=== PATIENT | male | born 1980 | race Caucasian/White ===

== ENCOUNTER 2017-08-29 15:51 | Emergency (ER) | payer MEDICARE ==
--- NOTE | 2017-08-29 16:29 | Emergency Department Record ---
History of Present Illness - General Chief complaint: Facial Swelling Stated complaint: FACE SWELLING SINCE SEIZURE 08/28/17 Time Seen by Provider: 08/29/17 16:20 Source: Patient Mode of Arrival: Ambulatory Limitations: No limitations - History of Present Illness Initial Comments: The patient states he has been having an increase in his chronic seizure pattern and now for the last few days he has had increased pain and very mild swelling to the R facial area. The patient is not sure if he has had any significant trauma or injury from the seizures due to loosing his memory for a time after which is normal for him. There has been no reported fever, chills, neck pain, vomiting, cough or visual changes. MD Complaint: Facial swelling Onset/Timin -: Days(s) Exposure: Unknown Symptoms: Facial swelling Severity: Mild Treatment Prior to Arrival: None Previous Allergy History: None - Related Data Home Medications Medication Instructions Recorded Confirmed Last Taken Zonisamide [Zonegran] 200 mg PO QHS 08/29/17 08/29/17 08/28/17 Previous Rx's Medication Instructions Recorded Clindamycin HCl [Cleocin HCl] 300 mg PO QID #28 capsule 08/29/17 Naproxen [Naprosyn] 500 mg PO BID #14 tablet. 08/29/17 Allergies Allergy/AdvReac Type Severity Reaction Status Date / Time Penicillins Allergy PT UNSURE Verified 08/29/17 16:08 OF REACTION Travel Screening - Travel/Exposure Within Last 30 Days Have you traveled within the last 30 days?: No Review of Systems Constitutional: Denies: Chills, Fever Eyes: Denies: Eye discharge ENT: Denies: Congestion Respiratory: Denies: Cough, Dyspnea Past Medical History - SOCIAL HISTORY Smoking Status: Former smoker Alcohol Use: Occasional Drug Use: None - RESPIRATORY Hx Respiratory Disorders: No - CARDIOVASCULAR Hx Cardio Disorders: Yes Hx Irregular Heartbeat: Yes (A-fib with seizure) - NEURO Hx Neuro Disorders: Yes Hx Seizures: Yes - GI Hx GI Disorders: No - Hx Genitourinary Disorders: No - ENDOCRINE Hx Endocrine Disorders: No - MUSCULOSKELETAL Hx Musculoskeletal Disorders: No - PSYCH Hx Psych Problems: Yes Hx Anxiety: Yes Hx Depression: Yes (PTSD) Family Medical History Any Significant Family History?: No Physical Exam - General General Appearance: Alert, Oriented x3, Cooperative, No acute distress - Head Head exam: Atraumatic, Normocephalic, Normal inspection - Eye Eye exam: Normal appearance, PERRL - ENT ENT exam: negative: Normal exam (There is very mild swelling and some tenderness to the R maxillary area above the teeth.) Teeth exam: Dental caries Throat exam: Normal inspection. negative: Tonsillar erythema - Neck Neck exam: Normal inspection, Full ROM. negative: Lymphadenopathy, Tenderness - Respiratory Respiratory exam: Normal lung sounds bilaterally. negative: Respiratory distress - Cardiovascular Cardiovascular Exam: Regular rate, Normal rhythm, Normal heart sounds - GI/Abdominal GI/Abdominal exam: Soft, Normal bowel sounds. negative: Tenderness - Extremities Extremities exam: Normal inspection, Full ROM, Normal capillary refill. negative: Tenderness - Neurological Neurological exam: Alert, Normal gait, Oriented X3. negative: Abnormal gait, Altered, Motor sensory deficit Course Vital Signs 08/29/17 16:10 Pulse Rate 112 H Respiratory 18 Rate Blood Pressure 140/97 Pulse Ox 98 - Reevaluation(s) Reevaluation #1: I did discuss the issues with the patient and the need for F/U with his Dentist and his Neurologist. We will discharge him on Clindamycin and Naprosyn. 08/29/17 17:41 Medical Decision Making - Data Complexity MDM Data: Labs Ordered and/or Reviewed, X-Ray Ordered and/or Reviewed - Lab Data Result diagrams: 08/29/17 16:15 08/29/17 16:15 - Radiology Data Radiology results: Report reviewed (Head CT: Neg for any acute changes. Facial bone CT: No obvious abscess but multiple dental caries.) Disposition Disposition: Discharge Clinical Impression: Pain, dental Disposition: Home, Self-Care Condition: (2) Stable Instructions: Toothache (ED) Additional Instructions: Please take the Naprosyn for pain and also the Clindamycin as directed. Please see your Neurologist for your seizures NAHUN and also see your Dentist NAHUN. Please return to an ER for any worsening symptoms. Prescriptions: Clindamycin HCl [Cleocin HCl] 300 mg PO QID #28 capsule Naproxen [Naprosyn] 500 mg PO BID #14 tablet.dr Forms: Patient Portal Access Time of Disposition: 17:43 Quality - Quality Measures Quality Measures: N/A - Blood Pressure Screening View Details: Yes Does Patient Have Any of the Following: No Blood Pressure Classification: Hypertensive Reading Systolic Measurement: 140 Diastolic Measurement: 97 Screening for High Blood Pressure: < First Hypertensive BP, F/U Documented > [ G8950] First Hypertensive Follow-up Interventions: Referral to alternative/primary care provider.
[2017-08-29 16:36] LABS: BASO % 0.4 % (0-6); EOS % 1.3 % (0-6); GRAN % 73.3 % (47-80); HEMATOCRIT 44.9 % (42.0-52.0); HEMOGLOBIN 15.6 gm/dl (14.0-18.0); LYMPH % 15.5 % (16-45); MEAN CELL VOLUME 88.2 fl (81-97); MEAN CORPUSCULAR HEMOGLOBIN 30.6 pg (27-33); MEAN CORPUSCULAR HGB CONC 34.7 g/dl (32-36); MEAN PLATELET VOLUME 9.5 fl (7.4-10.4); MONO % 9.5 % (0-9); PLATELET COUNT 270 K/uL (130-400); RED BLOOD COUNT 5.09 M/uL (4.40-5.70); RED CELL DISTRIBUTION WIDTH 13.1 % (11.5-14.5); WHITE BLOOD COUNT W/O DIFF 13.6 K/uL (4.2-12.2)
[2017-08-29 16:47] LABS: BLOOD UREA NITROGEN 14 mg/dL (6-20); CREATININE 1.1 mg/dL (0.7-1.2); EST GLOMERULAR FILTRATION RATE > 60 mL/min
[2017-08-29 16:48] LABS: TOTAL PROTEIN 8.2 g/dL (6.6-8.7)
[2017-08-29 16:50] LABS: GLUCOSE,RANDOM 94 mg/dL (74-109)
[2017-08-29 16:52] LABS: ALB/GLOB RATIO 1.5 (1.1-1.8); ALBUMIN 4.9 g/dL (4.0-5.0); ALKALINE PHOSPHATASE 75 U/L (40-129); ALT/SGPT 10 U/L (<41); AST/SGOT 13 U/L (10.0-50.0)
[2017-08-29] MEDS ORDERED: CLINDAMYCIN 150 MG CAP PO ONE (17:07)
[2017-08-29] MEDS ORDERED: KETOROLAC 30 MG/ML VIAL IM ONE (17:11)
--- NOTE | 2017-08-31 08:45 | CT SCAN REPORT ---
EXAM: EMERGENCY HEAD CT HISTORY: SEIZURES, RIGHT SIDED FACIAL SWELLING. HAS KNOWN SEIZURE DISORDER. TECHNIQUE: Axial CT scan of the head was performed without IV contrast. Comparison: None. FINDINGS: No definite acute intracranial hemorrhage identified. No focal mass effect or midline shift apparent. No definite acute infarct or intracranial mass lesion is seen. Mild membrane thickening in the right maxillary antrum and in the right ethmoids. No depressed calvarial fracture evident. If the patient's neurologic symptoms persist, follow-up brain MRI may be useful for further evaluation if not contraindicated. IMPRESSION: 1. NO DEFINITE ACUTE INTRACRANIAL HEMORRHAGE OR FOCAL MASS EFFECT EVIDENT. 2. MILD MEMBRANE THICKENING IN THE RIGHT MAXILLARY AND RIGHT ETHMOID SINUS. J[facility]BER: [id number] [facility]
--- NOTE | 2017-08-31 09:10 | CT SCAN REPORT ---
EXAM: CT SCAN OF THE FACIAL BONES HISTORY: MULTIPLE SEIZURES, FACIAL PAIN. TECHNIQUE: Axial CT scan of t4he facial bones was performed without IV contrast. Comparison: None. Encounter: Initial. FINDINGS: There is mild membrane thickening in the right ethmoid and right maxillary sinuses. Elsewhere, the paranasal sinuses all appear essentially clear and no actual air fluid levels are seen in the paranasal sinuses. The mastoids and middle ear cavities appear clear. No abnormal air collection seen within either orbit. There is some deviation of the nasal septum to the right. There are extensive dental caries present and dental consultation is suggested. No definite facial bone fracture identified. IMPRESSION: 1. NO DEFINITE FACIAL BONE FRACTURE IDENTIFIED. 2. MILD MEMBRANE THICKENING IN THE RIGHT MAXILLARY AND RIGHT ETHMOID SINUSES. 3. EXTENSIVE DENTAL CARIES THROUGHOUT NUMEROUS MAXILLARY AND MANDIBULAR TEETH. DENTAL CONSULTATION IS SUGGESTED. JOB [facility]BER: [id number] [facility]
== END 2017-08-29 17:49 | disposition home or self-care (01) ==
LOC: ER 15:51
DX: K02.9 Dental caries, unspecified (principal); K08.89 Other specified disorders of teeth and supporting structures; R22.0 Localized swelling, mass and lump, head; G40.309 Generalized idiopathic epilepsy and epileptic syndromes, not intractable, without status epilepticus; I48.91 Unspecified atrial fibrillation; Z87.891 Personal history of nicotine dependence
CPT/HCPCS: 99283; 96372; 99284; 85025; 80053; 70450; 70486; J1885

== ENCOUNTER 2017-09-02 02:29 | Emergency (ER) | payer MEDICARE ==
[2017-09-02] MEDS ORDERED: ONDANSETRON HCL IV 4 MG/2 ML VIAL IVP ONE (02:35)
--- NOTE | 2017-09-02 02:40 | Emergency Department Record ---
History of Present Illness - General Chief Complaint: Abdominal Pain Stated Complaint: ABDOMINAL PAIN Time Seen by Provider: 09/02/17 02:34 Source: Patient Mode of Arrival: EMS Limitations: No limitations - History of Present Illness Initial Comments: 37 yo male presents to ED for evaluation of nausea, vomiting, and abdominal pain symptoms for the past 24 hours. Patient report that he is currently taking Clindamycin for dental infection, denies previous abdominal surgery. Patient denies fevers, chills, or change in stools. Patient also reports history of seizures. MD Complaint: Abdominal pain Onset/Timin -: Hour(s) Location: Epigastric Radiation: None Migration to: No migration Severity: Moderate Quality: Cramping Consistency: Constant Improves With: Nothing Worsens With: Nothing Associated Symptoms: Nausea, Vomiting - Related Data Previous Rx's Medication Instructions Recorded Clindamycin HCl [Cleocin HCl] 300 mg PO QID #28 capsule 08/29/17 Naproxen [Naprosyn] 500 mg PO BID #14 tablet. 08/29/17 Ondansetron [Zofran Odt] 4 mg PO Q8H PRN #15 tab.rapdis 09/02/17 Allergies Allergy/AdvReac Type Severity Reaction Status Date / Time Penicillins Allergy PT UNSURE Verified 08/29/17 16:08 OF REACTION Review of Systems Constitutional: Denies: Chills, Fever, Malaise, Night sweats Eyes: Denies: Eye discharge, Eye pain ENT: Denies: Congestion, Ear pain, Epistaxis Respiratory: Denies: Cough, Dyspnea Cardiovascular: Denies: Chest pain, Dyspnea on exertion Endocrine: Denies: Fatigue, Heat or cold intolerance Gastrointestinal: Reports: Abdominal pain, Nausea, Vomiting. Denies: Constipation Genitourinary: Denies: Incontinence, Retention Musculoskeletal: Denies: Arthralgia, Back pain, Gout, Joint swelling Skin: Denies: Bruising, Change in color Neurological: Denies: Abnormal gait, Confusion, Headache, Seizure Psychiatric: Denies: Anxiety Hematological/Lymphatic: Denies: Anemia, Blood Clots Past Medical History - SOCIAL HISTORY Smoking Status: Former smoker Drug Use: None - RESPIRATORY Hx Respiratory Disorders: No - CARDIOVASCULAR Hx Cardio Disorders: Yes Hx Irregular Heartbeat: Yes (A-fib with seizure) - NEURO Hx Neuro Disorders: Yes Hx Seizures: Yes - GI Hx GI Disorders: No - Hx Genitourinary Disorders: No - ENDOCRINE Hx Endocrine Disorders: No - MUSCULOSKELETAL Hx Musculoskeletal Disorders: No - PSYCH Hx Psych Problems: Yes Hx Anxiety: Yes Hx Depression: Yes (PTSD) Physical Exam - General General Appearance: Alert, Oriented x3, Cooperative, Mild distress Limitations: No limitations - Head Head exam: Atraumatic, Normocephalic, Normal inspection Head exam detail: negative: Abrasion, Contusion, Corrigan's sign, General tenderness, Hematoma, Laceration - Eye Eye exam: Normal appearance. negative: Conjunctival injection, Periorbital swelling, Periorbital tenderness, Scleral icterus - ENT Ear exam: negative: Auricular hematoma, Auricular trauma Nasal Exam: negative: Active bleeding, Discharge, Dried blood, Foreign body Mouth exam: negative: Drooling, Laceration, Muffled voice, Tongue elevation - Neck Neck exam: Normal inspection. negative: Meningismus, Tenderness - Respiratory Respiratory exam: Normal lung sounds bilaterally. negative: Rales, Respiratory distress, Rhonchi, Stridor - Cardiovascular Cardiovascular Exam: Regular rate, Normal rhythm, Normal heart sounds - GI/Abdominal GI/Abdominal exam: Soft, Tenderness (Mild TTP epigastric, RUQ on examination, no rebound, guarding, or peritoneal signs on examination). negative: Rebound, Rigid - Rectal Rectal exam: Deferred - exam: Deferred - Extremities Extremities exam: Normal inspection. negative: Pedal edema, Tenderness - Back Back exam: Denies: CVA tenderness (R), CVA tenderness (L) - Neurological Neurological exam: Alert, Oriented X3. negative: Motor sensory deficit - Psychiatric Psychiatric exam: Normal affect, Normal mood - Skin Skin exam: Normal color. negative: Abrasion Type of lesion: negative: abrasion Course - Reevaluation(s) Reevaluation #1: 09/02/17 03:10 Labs reviewed, HCO3 16, AG 18, labs are otherwise grossly unremarkable for an acute process. Zofran and IVFs are infusing, patient denied the need for analgesia at this time. Reevaluation #2: 09/02/17 04:14 CT Abdomen and Pelvis: Distended gallbladder w/o evidence for cholecystitis Transverse, descending, and sigmoid colon are empty, ? bowel wall thickening suggesting colitis Patient was reassessed, reports that his nausea symptoms have returned. Reglan/ benadryl ordered to infuse. Patient continues to declined analgesia medications. Patient is not currently having any loose stools, and the patient has no pain symptoms to the LLQ region on examination. Will reassess following medications that were ordered to infuse. Reevaluation #3: 09/02/17 05:08 In to re-evaluate the patient for approximately 15 minutes. Patient has declined analgesia repeatedly in the ED, has been given Zofran, Reglan, and Benadryl for his symptoms without significant improvement. Patient has become more anxious over the past 40-45 minutes, I reviewed all of his results again with him and the fact that a identifiable cause has not yet been identified. Patient does smoke marijuana daily for 15-20 years, symptoms may be related to hyperemesis cannibis syndrome vs. colitis vs. possible interaction with the Clindamycin that he has been taking for dental infection. Patient also now reports that he recently underwent inpatient examination at [facility] last week for "induced seizures" to determine the etiology of his seizure disorder. At this point, I offered to the admit the patient for further evaluation vs. transferring to [facility] given his recent inpatient testing, patient declined both options. I discussed transfer to [facility] for further evaluation, patient has declined. Will administer Toradol for his continued pain symptoms, and the patient reports that he wants to leave AMA "to rest at home" and return for any worsening of his symptoms. Reevaluation #4: 09/02/17 05:17 Recent records obtained from [facility] record system on the patient's recent hospitalization for his seizure evaluation, patient became very agitated with staff stating "they are not treating me right because of my PTSD". Patient then proceeded to remove his leads and left the hospital without signing AMA paperwork. 08/29/17 Note from the neurology fellow (Dr. Santiago) was reviewed, was able to reach the patient via phone but was told to speak with the patient's SO following his elopement from [facility]. Neurology fellow recommended that the patient restart his Zonegran as prescribed for his seizures, patient's SO reported that "she would try". Reevaluation #5: 09/02/17 05:38 Patient reassessed and reports that his pain symptoms are improved, he is requesting to go home at this time as the "cool air may help". Patient appears stable for discharge at this time. Patient was counseled that his pain symptoms may return, and to return to the ED for possible admission vs. transfer for admission at that time. Medical Decision Making - Lab Data Result diagrams: 09/02/17 02:38 09/02/17 02:38 Disposition Disposition: Discharge Clinical Impression: Nausea & vomiting Qualifiers: Vomiting type: unspecified Vomiting Intractability: non-intractable Qualified Code(s): R11.2 - Nausea with vomiting, unspecified Disposition: Home, Self-Care Condition: (2) Stable Instructions: Acute Nausea and Vomiting (ED) Additional Instructions: Return to ED if your symptoms worsen or if you have any concerns. Zofran as directed. Follow-up with your family doctor in 1-3 days as directed. Prescriptions: Ondansetron [Zofran Odt] 4 mg PO Q8H PRN #15 tab.rapdis PRN Reason: Nausea/Vomiting Forms: Patient Portal Access Time of Disposition: 05:40 Quality - Quality Measures Quality Measures: N/A - Blood Pressure Screening Does Patient Have Any of the Following: No Blood Pressure Classification: Pre-Hypertensive BP Reading Systolic Measurement: 127 Diastolic Measurement: 81 Screening for High Blood Pressure: < Pre-Hypertensive BP, F/U Documented > [ G8950] Pre-Hypertensive Follow-up Interventions: Referral to alternative/primary care provider.
[2017-09-02] MEDS ORDERED: 0.9 % SODIUM CHLORIDE 1000ML 1,000 ML IV SCH (02:45)
[2017-09-02 02:46] LABS: HEMATOCRIT 40.3 % (42.0-52.0); HEMOGLOBIN 14.4 gm/dl (14.0-18.0); MEAN CELL VOLUME 86.1 fl (81-97); MEAN CORPUSCULAR HEMOGLOBIN 30.8 pg (27-33); MEAN CORPUSCULAR HGB CONC 35.7 g/dl (32-36); MEAN PLATELET VOLUME 9.5 fl (7.4-10.4); PLATELET COUNT 320 K/uL (130-400); RED BLOOD COUNT 4.68 M/uL (4.40-5.70); RED CELL DISTRIBUTION WIDTH 12.4 % (11.5-14.5); WHITE BLOOD COUNT W/O DIFF 6.9 K/uL (4.2-12.2)
[2017-09-02 03:01] LABS: BLOOD UREA NITROGEN 9 mg/dL (6-20); CREATININE 0.8 mg/dL (0.7-1.2); EST GLOMERULAR FILTRATION RATE > 60 mL/min; TOTAL PROTEIN 7.8 g/dL (6.6-8.7)
[2017-09-02 03:03] LABS: GLUCOSE,RANDOM 107 mg/dL (74-109)
[2017-09-02 03:06] LABS: ALB/GLOB RATIO 1.3 (1.1-1.8); ALBUMIN 4.4 g/dL (4.0-5.0); ALKALINE PHOSPHATASE 68 U/L (40-129); ALT/SGPT 12 U/L (<41); AST/SGOT 18 U/L (10.0-50.0); LIPASE 42 U/L (13-60)
[2017-09-02 03:07] LABS: PLATELET ESTIMATE NORMAL (NORMAL)
[2017-09-02] MEDS ORDERED: METOCLOPRAMIDE HCL 10 MG/2 ML VIAL IVP ONE (04:14)
[2017-09-02] MEDS ORDERED: DIPHENHYDRAMINE HCL IV 50 MG/ML VIAL IVP ONE (04:14)
[2017-09-02] MEDS ORDERED: 0.9 % SODIUM CHLORIDE 1000ML 250 ML IV SCH (04:15)
[2017-09-02] MEDS ORDERED: KETOROLAC 30 MG/ML VIAL IVP ONE (05:08)
--- NOTE | 2017-09-04 08:07 | CT SCAN REPORT ---
EXAM: CT OF THE ABDOMEN AND PELVIS WITH CONTRAST HISTORY: EPIGASTRIC PAIN. TECHNIQUE: Sequential axial images were obtained from the diaphragms through the ischiorectal fossa after intravenous administration of 100 ml of Omnipaque 300 contrast material. FINDINGS: The visualized lung bases appear normal. The liver, gallbladder, pancreas and spleen appear normal. There is equivocal mild inflammatory change in the second portion of the duodenum. Mild duodenitis is considered. The adrenal glands and kidneys appear normal. The small bowel appears normal. The colon appears normal. The appendix is visualized and appears normal. The urinary bladder appears normal. The osseous structures are normal. IMPRESSION: EQUIVOCAL MILD INFLAMMATORY CHANGE OF THE SECOND PORTION OF THE DUODENUM. EARLY DUODENITIS IS CONSIDERED. THE REMAINDER OF THE EXAMINATION IS UNREMARKABLE. JOB NUMBER: [id number] [facility]
== END 2017-09-02 05:51 | disposition home or self-care (01) ==
LOC: ER 02:29
DX: R11.2 Nausea with vomiting, unspecified (principal); R10.13 Epigastric pain; I48.91 Unspecified atrial fibrillation; G40.909 Epilepsy, unspecified, not intractable, without status epilepticus; Z87.891 Personal history of nicotine dependence; F43.10 Post-traumatic stress disorder, unspecified
CPT/HCPCS: 99284 ×2; 96374; 96375; 96361; 83690; 80053; 85027; 74177; Q9967; J1885; J2405; J1200; J2765; J7030

== ENCOUNTER 2018-08-26 11:26 | Emergency (ER) | payer MEDICARE, MEDICAID ==
[2018-08-26] MEDS ORDERED: LORAZEPAM 2 MG/ML VIAL IV ONE (11:30)
[2018-08-26] MEDS ORDERED: 0.9 % SODIUM CHLORIDE 1,000 ML BAG IV ONE (11:33)
[2018-08-26 11:39] LABS: HEMATOCRIT 48.3 % (42.0-52.0); HEMOGLOBIN 15.9 gm/dl (14.0-18.0); MEAN CELL VOLUME 93.1 fl (81-97); MEAN CORPUSCULAR HEMOGLOBIN 30.5 pg (27-33); MEAN CORPUSCULAR HGB CONC 32.9 g/dl (32-36); MEAN PLATELET VOLUME 9.5 fl (7.4-10.4); PLATELET COUNT 290 K/uL (130-400); WHITE BLOOD COUNT W/O DIFF 13.9 K/uL (4.2-12.2)
[2018-08-26 11:40] LABS: BLOOD UREA NITROGEN 7 mg/dL (6-20); GLUCOSE,RANDOM 109 mg/dL (74-109)
[2018-08-26 11:41] LABS: CREATININE 0.9 mg/dL (0.7-1.2); EST GLOMERULAR FILTRATION RATE > 60 mL/min
--- NOTE | 2018-08-26 12:09 | Emergency Department Record ---
History of Present Illness - General Chief Complaint: Seizures Stated Complaint: SEIZURE Time Seen by Provider: 08/26/18 11:32 Source: Patient Mode of Arrival: Stretcher Limitations: No limitations - History of Present Illness Initial Comments: pt was visiting another pt in [facility] when he had a seizure. he has a hx of seizures. Onset/Timin -: Hour(s) Description of Episode: Post-event confusion Duration of Episode: 20 -: Minutes(s) Witnessed: Yes - by bystander, Yes - by EMS, Yes - by other Trauma: No Seizure History: Known seizure disorder Place: Other Possible Precipitating Event: Head injury Associated Symptoms: Denies other symptoms Treatments Prior to Arrival: Benzodiazepines Treatment Prior to Arrival Comment:: Ativan 1 mg given IVP - Related Data Previous Rx's Medication Instructions Recorded Clindamycin HCl [Cleocin HCl] 300 mg PO QID #28 capsule 08/29/17 Naproxen [Naprosyn] 500 mg PO BID #14 tablet. 08/29/17 Ondansetron [Zofran Odt] 4 mg PO Q8H PRN #15 tab.rapdis 09/02/17 Allergies Allergy/AdvReac Type Severity Reaction Status Date / Time Penicillins Allergy PT UNSURE Verified 08/29/17 16:08 OF REACTION Travel Screening - Travel/Exposure Within Last 30 Days Have you traveled within the last 30 days?: No - Travel/Exposure Within Last Year Have you traveled outside the [place] in the last year?: No - Additonal Travel Details Have you been exposed to anyone with a communicable illness?: No - Travel Symptoms Symptom Screening: None Review of Systems ROS unobtainable: Due to mental status Past Medical History - SOCIAL HISTORY Smoking Status: Former smoker Alcohol Use Comment: unknown - RESPIRATORY Hx Respiratory Disorders: No - CARDIOVASCULAR Hx Cardio Disorders: Yes Hx Irregular Heartbeat: Yes (A-fib with seizure) - NEURO Hx Neuro Disorders: Yes Hx Seizures: Yes - GI Hx GI Disorders: No - Hx Genitourinary Disorders: No - ENDOCRINE Hx Endocrine Disorders: No - MUSCULOSKELETAL Hx Musculoskeletal Disorders: No - PSYCH Hx Psych Problems: Yes Hx Anxiety: Yes Hx Depression: Yes (PTSD) - HEMATOLOGY/ONCOLOGY Hx Hematology/Oncology Disorders: No Family Medical History Any Significant Family History?: No Physical Exam - General General Appearance: Alert, Cooperative, Mild distress - Head Head exam: Normal inspection - Eye Eye exam: Normal appearance, PERRL, EOMI Pupils: Normal accommodation - ENT ENT exam: Normal exam, Mucous membranes moist, Normal external ear exam, Normal orophraynx Ear exam: Normal external inspection. negative: External canal tenderness Nasal Exam: Normal inspection. negative: Discharge, Sinus tenderness Mouth exam: Normal external inspection, Tongue normal Teeth exam: Normal inspection. negative: Dental caries Throat exam: Normal inspection. negative: Tonsillar erythema, Tonsillar exudate - Neck Neck exam: Normal inspection, Full ROM. negative: Tenderness - Respiratory Respiratory exam: Normal lung sounds bilaterally. negative: Respiratory distress - Cardiovascular Cardiovascular Exam: Regular rate, Normal rhythm, Normal heart sounds - GI/Abdominal GI/Abdominal exam: Soft, Normal bowel sounds. negative: Tenderness - Rectal Rectal exam: Deferred - exam: Deferred - Extremities Extremities exam: Normal inspection, Full ROM, Normal capillary refill. negative: Tenderness - Back Back exam: Reports: Normal inspection, Full ROM. Denies: Muscle spasm, Rash noted, Tenderness - Neurological Neurological exam: Alert, CN II-XII intact, Normal gait, Oriented X3 - Psychiatric Psychiatric exam: Normal affect, Normal mood - Skin Skin exam: Dry, Intact, Normal color, Warm Course Vital Signs 08/26/18 11:32 Pulse Rate 83 Respiratory 20 Rate Blood Pressure 123/77 Pulse Ox 99 - Reevaluation(s) Reevaluation #1: 08/26/18 13:10 pt did well, recovered from postictal phase and is A&O x3. Medical Decision Making - Lab Data Result diagrams: 08/26/18 11:37 08/26/18 11:37 Lab Results 08/26/18 08/26/18 Range/Units 11:37 11:37 WBC 13.9 H (4.2-12.2) K/uL RBC 5.20 (4.40-5.70) M/uL Hgb 15.9 (14.0-18.0) gm/dl Hct 48.3 (42.0-52.0) % MCV 93.1 (81-97) fl MCH 30.5 (27-33) pg MCHC 32.9 (32-36) g/dl RDW 13.0 (11.5-14.5) % Plt Count 290 (130-400) K/uL MPV 9.5 (7.4-10.4) fl Eosinophils % Not Reportable Basophils % Not Reportable Sodium 142 (136-145) mmol/L Potassium 4.7 H (3.4-4.5) mmol/L Chloride 105 (98-107) mmol/L Carbon Dioxide 25.0 (22-29) mmol/L Anion Gap 12.0 (7-16) BUN 7 (6-20) mg/dL Creatinine 0.9 (0.7-1.2) mg/dL Estimated GFR > 60 mL/min Random Glucose 109 (74-109) mg/dL Calcium 9.5 (8.6-10.0) mg/dL Disposition Disposition: Discharge Clinical Impression: Seizure Disposition: Home, Self-Care Condition: (1) Good Instructions: Recurrent Seizures in Adults (ED) Additional Instructions: follow up with neurologist NAHUN. NO DRIVING UNTIL CLEARED BY NEUROLOGIST. no climbing Quality - Quality Measures Quality Measures: N/A - Blood Pressure Screening Does Patient Have Any of the Following: No Blood Pressure Classification: Pre-Hypertensive BP Reading Systolic Measurement: 123 Diastolic Measurement: 77 Screening for High Blood Pressure: < Pre-Hypertensive BP, F/U Documented > [ G8950] Pre-Hypertensive Follow-up Interventions: Follow-up with rescreen every year.
--- NOTE | 2018-08-26 14:30 | Emergency Department Record ---
History of Present Illness - General Chief Complaint: Seizures Stated Complaint: SEIZURE Time Seen by Provider: 08/26/18 11:32 Source: Patient Mode of Arrival: Stretcher Limitations: No limitations - History of Present Illness Onset/Timin -: Hour(s) Description of Episode: Post-event confusion Duration of Episode: 20 -: Minutes(s) Witnessed: Yes - by bystander, Yes - by EMS, Yes - by other Trauma: No Seizure History: Known seizure disorder Place: Other Possible Precipitating Event: Head injury Associated Symptoms: Denies other symptoms Treatments Prior to Arrival: Benzodiazepines Treatment Prior to Arrival Comment:: Ativan 1 mg given IVP - Related Data Previous Rx's Medication Instructions Recorded Clindamycin HCl [Cleocin HCl] 300 mg PO QID #28 capsule 08/29/17 Naproxen [Naprosyn] 500 mg PO BID #14 tablet. 08/29/17 Ondansetron [Zofran Odt] 4 mg PO Q8H PRN #15 tab.rapdis 09/02/17 Allergies Allergy/AdvReac Type Severity Reaction Status Date / Time Penicillins Allergy PT UNSURE Verified 08/29/17 16:08 OF REACTION Travel Screening - Travel/Exposure Within Last 30 Days Have you traveled within the last 30 days?: No - Travel/Exposure Within Last Year Have you traveled outside the [place] in the last year?: No - Additonal Travel Details Have you been exposed to anyone with a communicable illness?: No - Travel Symptoms Symptom Screening: None Past Medical History - SOCIAL HISTORY Smoking Status: Former smoker Alcohol Use Comment: unknown - RESPIRATORY Hx Respiratory Disorders: No - CARDIOVASCULAR Hx Cardio Disorders: Yes Hx Irregular Heartbeat: Yes (A-fib with seizure) - NEURO Hx Neuro Disorders: Yes Hx Seizures: Yes - GI Hx GI Disorders: No - Hx Genitourinary Disorders: No - ENDOCRINE Hx Endocrine Disorders: No - MUSCULOSKELETAL Hx Musculoskeletal Disorders: No - PSYCH Hx Psych Problems: Yes Hx Anxiety: Yes Hx Depression: Yes (PTSD) - HEMATOLOGY/ONCOLOGY Hx Hematology/Oncology Disorders: No Family Medical History Any Significant Family History?: No Physical Exam - General Limitations: No limitations Course Vital Signs 08/26/18 08/26/18 08/26/18 11:32 12:33 13:41 Temperature 97.8 F Pulse Rate 83 Pulse Rate [ 108 H 108 H Pulse Ox Probe] Respiratory 20 20 20 Rate Blood Pressure 123/77 Blood Pressure 114/77 111/74 [Left Arm] Pulse Ox 99 100 100 - Reevaluation(s) Reevaluation #1: 08/26/18 14:25 pt became confused at time of discharge so head ct was ordered. pt had another seizure last night and hit his head. he has a developing black eye and a lac that has restarted bleeding. he is not oriented to place 08/26/18 14:27 Reevaluation #2: 08/26/18 14:34 pt is now A&O X 3 Medical Decision Making - Lab Data Result diagrams: 08/26/18 11:37 08/26/18 11:37 Lab Results 08/26/18 08/26/18 Range/Units 11:37 11:37 WBC 13.9 H (4.2-12.2) K/uL RBC 5.20 (4.40-5.70) M/uL Hgb 15.9 (14.0-18.0) gm/dl Hct 48.3 (42.0-52.0) % MCV 93.1 (81-97) fl MCH 30.5 (27-33) pg MCHC 32.9 (32-36) g/dl RDW 13.0 (11.5-14.5) % Plt Count 290 (130-400) K/uL MPV 9.5 (7.4-10.4) fl Eosinophils % Not Reportable Basophils % Not Reportable Sodium 142 (136-145) mmol/L Potassium 4.7 H (3.4-4.5) mmol/L Chloride 105 (98-107) mmol/L Carbon Dioxide 25.0 (22-29) mmol/L Anion Gap 12.0 (7-16) BUN 7 (6-20) mg/dL Creatinine 0.9 (0.7-1.2) mg/dL Estimated GFR > 60 mL/min Random Glucose 109 (74-109) mg/dL Calcium 9.5 (8.6-10.0) mg/dL Disposition Disposition: Discharge Clinical Impression: Seizure, Laceration Disposition: Home, Self-Care Condition: (1) Good Instructions: Recurrent Seizures in Adults (ED) Additional Instructions: follow up with neurologist NAHUN. NO DRIVING UNTIL CLEARED BY NEUROLOGIST. no climbing. sutures out in 6-7 days Forms: Patient Portal Access Quality - Blood Pressure Screening Does Patient Have Any of the Following: No Blood Pressure Classification: Pre-Hypertensive BP Reading Systolic Measurement: 123 Diastolic Measurement: 77 Screening for High Blood Pressure: < Pre-Hypertensive BP, F/U Documented > [ [id number]] Laceration - Head - Time Out Informed consent:: Informed consent obtained Confirmed first & last name, , procedure, correct site?: Yes Start Date: 08/26/18 Start Time: 13:45 - Location Location of laceration:: Right Laceration located on:: Nose Length of laceration:: 2 Length of laceration:: cm Face/Head: 1 - 2cm lac - Clean and Prep Laceration cleaning method:: Cleansed, Copious Irrigation Laceration cleaning agent:: Normal Saline - Topical Anesthetic Lidocaine dose:: 1 mL Lidocaine used:: 1% - Procedural Detail Tissue detail:: Torn Foreign body in the wound?: No Undermining was preformed?: No Stent applied?: No Geraldine applied?: No Retention suture(s) applied?: Yes (3 simple interrupted sutures w 5.0 ethilon)
[2018-08-27] MEDS ORDERED: LORAZEPAM 2 MG/ML VIAL IV ONE (08:29)
--- NOTE | 2018-08-29 04:57 | CT SCAN REPORT ---
DATE: 08/26/2018. EXAM: HEAD CT. HISTORY: Seizure today. Hit head and face. TECHNIQUE: CT of the brain performed without intravenous contrast. COMPARISON: 08/29/2017. FINDINGS: Ventricles and subarachnoid spaces are unremarkable. No mass or mass effect. No intra- or extra-axial hemorrhage. No CT evidence for large, acute territorial infarct. No fracture or acute osseous abnormality identified. The visualized sinuses are clear. IMPRESSION: UNREMARKABLE HEAD CT. JOB NUMBER: [id number] [facility]
== END 2018-08-26 15:15 | disposition home or self-care (01) ==
LOC: ER 11:26
DX: S01.21XA Laceration without foreign body of nose, initial encounter (principal); S09.90XA Unspecified injury of head, initial encounter; S00.11XA Contusion of right eyelid and periocular area, initial encounter; G40.909 Epilepsy, unspecified, not intractable, without status epilepticus; F05 Delirium due to known physiological condition; I48.91 Unspecified atrial fibrillation; W19.XXXA Unspecified fall, initial encounter; Z87.891 Personal history of nicotine dependence
CPT/HCPCS: 12051 ×2; 99284 ×2; 96374; 85025; 80048; 70450; J2060; J7030